=== PATIENT | female | born 1950 | race Caucasian/White ===

== ENCOUNTER 2023-08-01 08:46 | Outpatient (AMB) | payer MEDICARE, SELFPAY ==
--- NOTE | 2023-08-01 09:02 | HO.NEPHOV ---
HPI HPI Comments History of Present Illness Details 73-year-old woman with a history of nephrolithiasis he is here for annual follow-up. She has had about 6 stones in the past with multiple procedures. She is to follow with Dr. Cornelius and switched care since Dr. Cornelius has retired. Few weeks ago she was at a and blood pressure was as high as 160 mm Hg and she is concerned that she might have hypertension. At present she has not on any medications. 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 She was given hydrochlorothiazide and subsequently stopped because she developed itching At present she has no specific complaints. No headache nausea vomiting. No hematuria. No dysuria urgency. No edema no shortness of breath. All other systems were reviewed [facility] Social History (Updated 08/01/23 @ 09:06 by Melonie Charles) Alcohol intake: current Comment: Occ Patient Tobacco Use Status: Never used Tobacco Vital Signs 08/01/23 09:03 Height 5 ft 2 in Weight 132 lb BMI 24.1 BP 124/70 Blood Pressure Location Lt brachial Position Sitting Pulse 88 Pulse Source Pulse Oximeter Pulse Oximetry (%) 98 Oxygen Delivery Method Room Air Physical Exam Vital Signs: Last Vital Signs Pulse 88 08/01/23 09:03 BP 124/70 08/01/23 09:03 Pulse Ox 98 08/01/23 09:03 Oxygen Delivery Method Room Air 08/01/23 09:03 BMI result Body Mass Index 24.1 Const General: comfortable Nutritional Appearance: well nourished Orientation/consciousness: patient oriented x3 HEENT Head: No normal to inspection Mouth: moist mucous membranes Neck Neck: Yes supple and Yes no JVD Resp Auscultation: clear to auscultation bilaterally, no rales and rub present Cardio Jugular venous distension: no JVD Palpation: no palpable S3 and no palpable S4 Heart sounds: no rubs GI Palpation (GI): Soft to palpation and nontender Percussion: No Fluid wave present General: Yes no CVA tenderness Back/Spine/Pelvis Back: no CVA tenderness Skin General skin exam: no rashes or lesions noted Neuro General: patient oriented x3 Extrem General: Yes no pedal edema and No clubbing Assessment & Plan Assessment & Plan (1) Nephrolithiasis: Code(s): N20.0 - Calculus of kidney (2) Elevated blood pressure reading: Code(s): R03.0 - Elevated blood-pressure reading, without diagnosis of hypertension Plan 73-year-old woman with a history of multiple renal stones. At present she is asymptomatic. Last 24 hour urine collection was more than 3 years ago. I will repeat a 24 urine collection. The meantime encouraged her to stand low-sodium diet She needs to increase her fluid intake to maintain urine output of at least 2 L. History of elevated blood pressure. In the office today blood pressure was in the normal range. I have encouraged her to monitor her blood pressure at home few times a week. Home blood pressure is suboptimal I will consider 24 hour ABP and. Orders: Orders Creatinine, 24 Hr Group Today N20.0 - Calculus of kidney Calcium, 24 Hr Ur Today N20.0 - Calculus of kidney Oxalate, 24 Hr Today N20.0 - Calculus of kidney Uric Acid, 24Hr Urine Group Today N20.0 - Calculus of kidney Parathyroid Hormone Intact Today N20.0 - Calculus of kidney Sodium, 24Hr Urine Group Today N20.0 - Calculus of kidney Citric Acid 24hr Urine Today N20.0 - Calculus of kidney Vitamin D 25-OH (D2 and D3) Today N20.0 - Calculus of kidney Comprehensive Met. Panel Today N18.9 - Chronic kidney disease, unspecified, N20.0 - Calculus of kidney Coding Level of Care Code New Pt Level 4 (33002) Diagnoses Nephrolithiasis N20.0 Elevated blood pressure reading R03.0 Results Reviewed Results Reviewed: Previous labs reviewed Nephrology Results: No Data to Display
[2023-08-01 09:03] VITALS: BP 124/70; PULSE 88; O2SAT 98; BMI 24.1
== END 2023-08-01 09:26 | disposition home or self-care (01) ==
PROVIDERS: Visit Provider Internal Medicine Hypertension Specialist
DX: N20.0 Calculus of kidney (principal); R03.0 Elevated blood-pressure reading, without diagnosis of hypertension
CPT/HCPCS: 99204

== ENCOUNTER 2023-08-01 09:37 | Outpatient (REF) | payer MEDICARE, SELFPAY ==
[2023-08-01 17:16] LABS: Alanine Aminotransferase 9 U/L (0-31); Albumin Level 4.2 g/dL (3.5-5.0); Alkaline Phosphatase 89 U/L (39-117); Anion Gap 12 (12-20); Aspartate Amino Transferase 18 U/L (5-31); Bilirubin Total 0.6 mg/dL (0.0-1.0); Blood Urea Nitrogen 16 mg/dL (9-16); Calcium 9.2 mg/dL (8.4-10.2); Carbon Dioxide 29 mmol/L (22-29); Chloride 104 mmol/L (96-108); Estimated Glomerular Filt Rate > 60; Glucose Random 94 mg/dL (60-115); Potassium 3.8 mmol/L (3.3-5.1); Sodium 141 mmol/L (135-145); Total Protein 7.3 g/dL (6.5-8.0)
[2023-08-01 18:37] LABS: Parathyroid Hormone Intact 45.9 pg/mL (8.7-77.1)
[2023-08-04 14:09] LABS: Vitamin D 25-OH, D2 <4 ng/mL; Vitamin D 25-OH, D3 29 ng/mL; Vitamin D 25-OH, Total 29 ng/mL (30-100)
== END 2023-08-01 09:38 | disposition home or self-care (01) ==
LOC: HO.HKASLDS 09:37
PROVIDERS: Visit Provider Internal Medicine Hypertension Specialist
DX: N20.0 Calculus of kidney (principal); N18.9 Chronic kidney disease, unspecified
CPT/HCPCS: 36415; 80053; 82306; 83970; 99202

== ENCOUNTER 2023-08-08 17:36 | Outpatient (REF) | payer MEDICARE, SELFPAY ==
[2023-08-08 19:10] LABS: Creatinine, mg/dL 62.29
[2023-08-08 19:13] LABS: Creatinine, mg/dL 63.43; Uric Acid, mg/dL 29.7 mg/dL
[2023-08-08 21:34] LABS: Creatinine, 24Hr Urine 0.9 G/Day (1.0-2.0); Sodium 24 Hr Urine 92.4 mmol/Day (40-220); Total Volume 24 Hour Urine 1400 mL
[2023-08-08 21:35] LABS: Creatinine, 24Hr Urine 0.9 G/Day (1.0-2.0); Total Volume 24 Hour Urine 1400 mL; Uric Acid, 24 Hr Urine 415.8 mg/Day (250-750)
[2023-08-10 16:58] LABS: Calcium, 24 Hr Urine 256 mg/24 h; Calcium/Creatinine Ratio 277 mg/g creat (30-275); Creatinine 24Hr Urine 0.92 g/24 h (0.50-2.15)
[2023-08-14 06:44] LABS: 24hr Urine Total Volume 1400 mL; Creatinine, 24U 0.92 g/24 h (0.50-2.15); Oxalic Acid 24 Urine 16.3 mg/24 h (3.6-38.0)
[2023-08-15 09:52] LABS: Citric Acid, 24hr Urine 909 mg/24 h (100-1300); Citric Acid/Creat Ratio 24U 977 mg/g creat (180-1070)
== END 2023-08-08 17:37 | disposition home or self-care (01) ==
LOC: HO.LNP 17:36
PROVIDERS: Visit Provider Internal Medicine Hypertension Specialist
DX: N20.0 Calculus of kidney (principal)
CPT/HCPCS: 82340; 82507; 83945; 84300; 84560

== ENCOUNTER 2023-08-29 11:15 | Outpatient (AMB) | payer MEDICARE, SELFPAY ==
--- NOTE | 2023-08-29 11:20 | HO.NEPHOV_ITS ---
Vital Signs 08/29/23 11:24 Height 5 ft 2 in Weight 133 lb 2 oz BMI 24.3 BP 122/80 Blood Pressure Location Lt brachial Position Sitting Pulse 88 Pulse Source Pulse Oximeter Pulse Oximetry (%) 97 Oxygen Delivery Method Room Air Intake Visit Reasons: 4 Week F/U/ LVM Instrumentation Manager Required: No Accompanied by: Self / Same As Patient Allergies codeine Allergy (Mild, Verified 08/29/23 11:26) Nausea and Vomiting HPI Comments Details: 73-year-old woman with a history of nephrolithiasis he is here for annual follow-up. She has had about 6 stones in the past with multiple procedures. She is to follow with Dr. Cornelius and switched care since Dr. Cornelius has retired. Few weeks ago she was at a and blood pressure was as high as 160 mm Hg and she is concerned that she might have hypertension. At present she has not on any medications. 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 She was given hydrochlorothiazide and subsequently stopped because she developed itching At present she has no specific complaints. No headache nausea vomiting. No hematuria. No dysuria urgency. No edema no shortness of breath. All other systems were reviewed. [facility] Social History Alcohol intake: current Comment: [facility] Patient Tobacco Use Status: Never used Tobacco Physical Exam Vital Signs: Last Vital Signs Pulse 88 08/29/23 11:24 BP 122/80 08/29/23 11:24 Pulse Ox 97 08/29/23 11:24 Oxygen Delivery Method Room Air 08/29/23 11:24 BMI result Body Mass Index 24.3 Const General: comfortable Nutritional Appearance: well nourished Orientation/consciousness: patient oriented x3 HEENT Head: No normal to inspection Mouth: moist mucous membranes Neck Neck: Yes supple and Yes no JVD Resp Auscultation: clear to auscultation bilaterally, no rales and rub present Cardio Jugular venous distension: no JVD Palpation: no palpable S3 and no palpable S4 Heart sounds: no rubs GI Palpation (GI): Soft to palpation and nontender Percussion: No Fluid wave present General: Yes no CVA tenderness Back/Spine/Pelvis Back: no CVA tenderness Skin General skin exam: no rashes or lesions noted Neuro General: patient oriented x3 Extrem General: Yes no pedal edema and No clubbing Results Reviewed Nephrology Results: Sodium 141 mmol/L (135-145) 08/01/23 Potassium 3.8 mmol/L (3.3-5.1) 08/01/23 Chloride 104 mmol/L (96-108) 08/01/23 Carbon Dioxide 29 mmol/L (22-29) 08/01/23 BUN 16 mg/dL (9-16) 08/01/23 Creatinine 0.69 mg/dL (0.5-1.4) 08/01/23 Calcium 9.2 mg/dL (8.4-10.2) 08/01/23 PTH Intact 45.9 pg/mL (8.7-77.1) 08/01/23 Assessment & Plan Assessment & Plan (1) Nephrolithiasis: Code(s): N20.0 - Calculus of kidney Category: Medical (2) Elevated blood pressure reading: Code(s): R03.0 - Elevated blood-pressure reading, without diagnosis of hypertension Category: Medical Plan 73-year-old woman with a history of multiple renal stones. At present she is asymptomatic. 24 urine collection. showed volume of 1400 cc only abnormality was mildly elevated calcium excretion Stay on low calcium diet No HCTZ since she is allergic encouraged her to stay on low-sodium diet She needs to increase her fluid intake to maintain urine output of at least 2 L. History of elevated blood pressure. In the office today blood pressure was in the normal range. I have encouraged her to monitor her blood pressure at home few times a week. Home blood pressure is suboptimal I will consider 24 hour ABPM. Orders: Orders Basic Metabolic Panel 11 Months N20.0 - Calculus of kidney Coding Level of Care Code Est Pt Level 3 (20623) Diagnoses Nephrolithiasis N20.0 Elevated blood pressure reading R03.0
[2023-08-29 11:24] VITALS: BP 122/80; PULSE 88; O2SAT 97; BMI 24.3
== END 2023-08-29 11:54 | disposition home or self-care (01) ==
PROVIDERS: Visit Provider Internal Medicine Hypertension Specialist
DX: N20.0 Calculus of kidney (principal); R03.0 Elevated blood-pressure reading, without diagnosis of hypertension
CPT/HCPCS: 99213

== ENCOUNTER → 2023-08-29 11:15 | Outpatient (BNVA) | payer MEDICARE, SELFPAY | PROVIDERS: Visit Provider Internal Medicine Hypertension Specialist | DX: N20.0 Calculus of kidney (principal); R03.0 Elevated blood-pressure reading, without diagnosis of hypertension | CPT/HCPCS: 99212 ==

== ENCOUNTER 2024-08-19 09:29 | Outpatient (REF) | payer MEDICARE, SELFPAY ==
--- OUTSIDE RECORDS SUMMARY | 2024-08-19 10:26 | XMS_ITS | Encounter Summary ---
Author Organization [facility] Address [address] [place] [address] Phone Care Team Providers Care Manager Safe Name Role Phone Zenaida Cain NP Primary Care Provider Encounter Details Date Type Department Care Team (Late st Contact Info) Description 2022 Telephone [facility] [address] [place] [address] Paulina Cornelius MD Social History Tobacco Use Types Packs/Day Years Used Date Smoking Tobacco: Never Smokeless Tobacco: Never Alcohol Use Standard Drinks/Week Comments Yes 0 (1 standard drink = 0.6 oz pure alcohol) Alcoholic Drinks/day: Occasional social drink Comments Unknown Sex and Gender Information Value Date Recorded Sex Assigned at Not on file Legal Sex Female 4:46 PM EST Gender Identity Not on file Sexual Orientation Not on file COVID-19 Exposure Response Date Recorded In the last 10 days, have yo u been in contact with someone who was confirmed or suspected to have Coronavirus/COVID-19? No / Unsure 01/10/2022 6:15 PM EDT documented as of this encounter Miscellaneous Notes * Telephone Encounter - Latonya Rocha - 2022 2:39 PM EDT Pt called, she would like to review her labs from 01/23/22 with you. Please call her back at [phone] Thank you documented in this encounter Plan of Treatment Not on file documented as of this encounter Visit Diagnoses Not on filedocumented in this encounter Care Teams Manager Safe Relationship Specialty Start Date End Date Zenaida Cain NP [address] PCP - General 05/03/20 documented as of this encounter
--- OUTSIDE RECORDS SUMMARY | 2024-08-19 10:26 | XMS_ITS | Clinical Summary ---
Author Organization [facility] Address [address] [place] [address] Care Team Providers Care Water Resource Project Manager Name Role Phone Zenaida Cain NP Primary Care Provider [phone] Allergies Active Allergy Reactions Criticality Noted Date Comments Codeine 08/20/2017 Medications Medication Sig Dispensed Refills Start Date End Date Status citric acid-potassium citrate (POLYCITRA) 1100-334 MG/5ML solution Take by mouth 3 (three) times a day with meals. 0 Active magnesium citrate 1.745 GM/30ML SOLN oral solution Take 296 mL by mouth once. 0 Active Active Problems No known active problems Family History Medical History Relation Name Comments Multiple sclerosis Maternal Aunt Uterine cancer Mother Relation Name Status Comments Maternal Aunt Mother Social History Tobacco Use Types Packs/Day Years Used Date Smoking Tobacco: Never Smokeless Tobacco: Never Alcohol Use Standard Drinks/Week Comments No 0 (1 standard drink = 0.6 oz pur e alcohol) Sex and Gender Information Value Date Recorded Sex Assigned at Not on file Gender Identity Not on file Sexual Orientation Not on file Job Start Date Occupation Industry Not on file Not on file Not on file Last Filed Vital Signs Vital Sign Reading Time Taken Comments Blood Pressure 118/70 08/20/2017 9:15 AM EDT Pulse - - Temperature - - Respiratory Rate - - Oxygen Saturation - - Inhaled Oxygen Concentration - - Weight 64.4 kg (142 lb) 08/20/2017 9:15 AM EDT Height 157.5 cm (5' 2 ) 08/20/2017 9:15 AM EDT Body Mass Index 25.97 08/20/2017 9:15 AM EDT Plan of Treatment Health Maintenance Due Date Last Done Comments Hepatitis C Screening 1950 COVID-19 Vaccine (#1) 1950 Depression Screening 1960 Preventative Health Evaluation 02/05/1966 DTap / Tdap / Td (1 - Tdap) 02/05/1967 Shingrix-Zoster Vaccine (1 of 2) 02/05/1998 Fall Risk Assessment 02/05/2013 Osteoporosis Screening (DEXA Scan) 02/05/2013 Pneumococcal Vaccine (1 of 1 - PCV) 02/05/2013 RSV Adult > 60+ Yrs or Pregn ant (1 - 1-dose 75+ series) 02/05/2023 Influenza Vaccine (#1) 2023 Hepatitis B Vaccines Aged Out No long er eligible based on patient's age to complete this topic RSV Ped < 20 months Aged Out No longe r eligible based on patient's age to complete this topic Care Teams Water Resource Project Manager Relationship Specialty Start Date End Date Zenaida Cain NP [address] [place] [address] PCP - General Gerontology 08/15/17
--- OUTSIDE RECORDS SUMMARY | 2024-08-19 10:26 | XMS_ITS | Clinical Summary ---
Author Organization [facility] Address [address] [place] [address] Phone Care Team Providers Care Wire Worker Name Role Phone Zenaida Cain NP Primary Care Provider [phone] Allergies Active Allergy Reactions Criticality Noted Date Comments Codeine 05/22/2024 Medications famotidine (PEPCID) 20 mg tablet Take 1 tablet (20 mg total) by mouth 2 (two) times a day. for 30 days Active Encounters Date Type Department Care Team Description 07/25/2024 Telephone Gastroenterology - [address] [facility] [address] [place] [phone] Becky Ignacio MA Results 07/23/2024 10:47 AM EDT Anesthesia Event [facility] Endoscopy [address] [place] [phone] Lake Shelton MD 07/23/2024 9:23 AM EDT - 07/23/2024 11:59 PM EDT Hospital Encounter [facility] Endoscopy [address] [place] [id number] Jose Leon MD Korobkov, Vitaliy, DO GERD (gastroesophageal reflux disease) Discharge Disposition: Home or Self Care 07/02/2024 11:30 AM EDT Ancillary Procedure [facility] - [address] [place] [phone] Syncope and collapse 05/22/2024 11:00 AM EST Office Visit Gastroenterology - [address] [place] [address] Joy Espinoza NP Gastroesophageal reflux disease, unspecified whether esophagitis present (Primary Dx) from Last 3 Months Surgical History Surgery Date Site/Laterality Comments CHOLECYSTECTOMY KIDNEY STONE SURGERY X6 DR TOE(S) RIGHT FOOT Right BUNION Medical History Medical History Date Comments Kidney stones, calcium oxalate Hypertension Syncope and collapse GERD (gastroesophageal reflux disease) Basal cell adenocarcinoma Social History Tobacco Use Types Packs/Day Years Used Date Smoking Tobacco: Never Smokeless Tobacco: Never Alcohol Use Standard Drinks/Week Comments Not Currently 0 (1 standard drink = 0.6 oz pur e alcohol) Interpersonal Safety Answer Date Record ed Physical Abuse 07/23/2024 Verbal Abuse 07/23/2024 Comments No Sex and Gender Information Value Date Recorded Sex Assigned at Female 07/23/2024 9:19 AM EDT Legal Sex Female 9:28 AM EST Gender Identity Female 04/28/2024 2:05 PM EST Sexual Orientation Straight 04/28/2024 2: 05 PM EST Obstetrics History Last Filed Vital Signs Vital Sign Reading Time Taken Comments Blood Pressure 131/76 07/23/2024 11:21 AM EDT Pulse 73 07/23/2024 11:21 AM EDT Temperature 36 ??C (96.8 ??F) 07/23/2024 11:01 AM EDT Respiratory Rate 14 07/23/2024 11:21 AM EDT Oxygen Saturation 100% 07/23/2024 11:21 AM EDT Inhaled Oxygen Concentration - - Weight 60.3 kg (133 lb) 07/23/2024 9:58 AM EDT Height 158.5 cm (5' 2.4 ) 07/23/2024 9:58 AM EDT Body Mass Index 24.02 07/23/2024 9:58 AM EDT Plan of Treatment Health Maintenance Due Date Last Done Comments Zoster Vaccines (1 of 2) 02/05/1998 Cholesterol Screening (Lipid Panel) 04/01/2022 Depression Screening 04/01/2022 Hepatitis C Screening 04/01/2022 Medicare Annual Wellness Visit 04/01/2022 Osteoporosis Screening (Bone Density Screening) 04/01/2022 Social Influencers of Health Screening 04/01/2022 RSV Immunization Adult Patients (1 - 1-dose 75+ series) 02/05/2023 COVID-19 Vaccine ( season) 2023 03/28/2023, 02/28/2022, 01/23/2021, Additional history exists Hypertension/CHF/CAD Annual BMP Blood Test 04/21/2024 Falls Risk Assessment 07/23/2025 07/23/2024 DTaP,Tdap,and Td Vaccines (3 - Td or Tdap) 04/05/2028 04/05/2018, 09/25/1996 Pneumococcal Vaccine: 50+ Years Completed 03/09/2017, 03/07/2017 Influenza Vaccine Completed 02/13/2024, , 02/01/2022, Additional history exists HIB Vaccines Aged Out No longer eligi ble based on patient's age to complete this topic HPV Vaccines Aged Out No longer eligi ble based on patient's age to complete this topic Hepatitis A Vaccines Aged Out No long er eligible based on patient's age to complete this topic Hepatitis B Vaccines Aged Out No long er eligible based on patient's age to complete this topic IPV Vaccines Aged Out No longer eligi ble based on patient's age to complete this topic MMR Vaccines Aged Out No longer eligi ble based on patient's age to complete this topic Meningococcal ACWY Vaccine Aged Out N o longer eligible based on patient's age to complete this topic Meningococcal B Vaccine Aged Out No l onger eligible based on patient's age to complete this topic RSV Immunization Patients Under 20 months Aged Out No longer eligible based on patient's age to complete this topic Varicella Vaccines Aged Out No longer eligible based on patient's age to complete this topic Procedures Procedure Name Priority Date/Time Associated Diagnosis Comments EGD Routine 07/23/2024 11:00 AM EDT GERD (gastroesophageal reflux disease) TISSUE EXAM Routine 07/23/2024 10:55 AM EDT GERD (gastroesophageal reflux disease) TRANSTHORACIC ECHOCARDIOGRAM (TTE) COMPLETE Routine 07/02/2024 12:05 PM EDT Syncope and collapse from Last 3 Months Results * EGD Anesthesia - MAC; [facility] ENDOSCOPY (07/23/2024 11:00 AM EDT) Anatomical Region Laterality Modality Endoscopy 07/23/2024 10:5 3 AM EDT Impressions 07/23/2024 11:01 AM EDT - 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 Biopsied. ? - Small hiatal hernia. ? - Normal examined duodenum. Recommendation: ?- Await pathology results. ? - Continue present medications. ? - Repeat upper endoscopy for surveillance based on ? pathology results. Narrative 07/23/2024 11:01 AM EDT [facility] GI Patient Name: Tiffany Bird Procedure Date: 07/23/2024 10:53 AM Date of : 1950 Age: 74 Room: ROOM 15 Gender: Female Note Status: Finalized Attending MD: Jose Leon MD, Procedure Date No Time: 07/23/2024 Procedure: ? Upper GI endoscopy Indications: ? Heartburn, Gastro-esophageal reflux disease Providers: ? Jose Leon MD Referring MD: ?Jose Leon MD Medicines: ? Propofol per Anesthesia Complications: ? No immediate complications. Estimated Blood Loss: ? Estimated blood loss: none. Procedure: ? Pre-Anesthesia Assessment: ? - ASA Grade Assessment: II - A patient with mild ? systemic disease. ? After obtaining informed consent, the endoscope was ? passed under direct vision. Throughout the procedure, ? the patient's blood pressure, pulse, and oxygen ? saturations were monitored continuously.The Endoscope ? was introduced through the mouth, and advanced to the ? second part of duodenum. The upper GI endoscopy was ? accomplished without difficulty. The patient tolerated ? the procedure well. Findings: ?There were esophageal mucosal changes suggestive of ? short-segment Maddox's esophagus present in the lower ? third of the esophagus. The maximum longitudinal ? extent of these mucosal changes was 1 cm in length. ? Biopsies were taken with a cold forceps for histology. ? A small hiatal hernia was present. ? The exam of the stomach was otherwise normal. ? The examined duodenum was normal. Procedure Code(s): ? --- Professional --- ? 73621, Esophagogastroduodenoscopy, flexible, ? transoral; with biopsy, single or multiple Diagnosis Code(s): ? --- Professional --- ? K22.89, Other specified disease of esophagus ? K44.9, Diaphragmatic hernia without obstruction or ? gangrene ? R12, Heartburn ? K21.9, Gastro-esophageal reflux disease without ? esophagitis CPT copyright 2020 [employer]. All rights reserved. The codes documented in this report are preliminary and upon keyboarding teacher review may be revised to meet current compliance requirements. Jose Leon MD 07/23/2024 11:01:22 AM This report has been signed electronically.Jose Leon MD Number of Addenda: 0 Note Initiated On: 07/23/2024 10:53 AM Scope In: Scope Out: ? Endoscopy Department at [facility] - [address] [place] [address], ? [place] [address] Procedure Note Jose Leon MD - 07/23/2024 [facility] GI Patient Name: Tiffany Bird Procedure Date: 07/23/2024 10:53 AM Date of : 1950 Age: 74 Room: ROOM 15 Gender: Female Note Status: Finalized Attending MD: Jose Leon MD, Procedure Date No Time: 07/23/2024 Procedure: Upper GI endoscopy Indications: Heartburn, Gastro-esophageal reflux disease Providers: Jose Leon MD Referring MD: Jose Leon MD Medicines: Propofol per Anesthesia Complications: No immediate complications. Estimated Blood Loss: Estimated blood loss: none. Procedure: Pre-Anesthesia Assessment: - ASA Grade Assessment: II - A patient with mild systemic disease. After obtaining informed consent, the endoscope was passed under direct vision. Throughout theprocedure, the patient's blood pressure, pulse, and oxygen saturations were monitored continuously.TheEndoscope was introduced through the mouth, and advanced tothe second part of duodenum. The upper GI endoscopy was accomplished without difficulty. The patienttolerated the procedure well. Findings: There were esophageal mucosal changes suggestive of short-segment Maddox's esophagus present in thelower third of the esophagus. The maximum longitudinal extent of these mucosal changes was 1 cm in length. Biopsies were taken with a cold forceps forhistology. A small hiatal hernia was present. The exam of the stomach was otherwise normal. The examined duodenum was normal. Procedure Code(s): --- Professional --- 65993, Esophagogastroduodenoscopy, flexible, transoral; with biopsy, single or multiple Diagnosis Code(s): --- Professional --- K22.89, Other specified disease of esophagus K44.9, Diaphragmatic hernia without obstruction or gangrene R12, Heartburn K21.9, Gastro-esophageal reflux disease without esophagitis CPT copyright 2020 [employer]. All rights reserved. The codes documented in this report are preliminary and upon keyboarding teacher reviewmay be revised to meet current compliance requirements. 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 Biopsied. - Small hiatal hernia. - Normal examined duodenum. Recommendation: - Await pathology results. - Continue present medications. - Repeat upper endoscopy for surveillance based on pathology results. Jose Leon MD GI~PROCEDURE ORDERABLES Fin al Result * Tissue exam (07/23/2024 10:55 AM EDT) Final Diagnosis A. Esophagus, biopsies: - Maddox's mucosa. - Negative for dysplasia. 07/24/2024 12:38 PM EDT [facility] Gross Description A. Esophagus, biopsies: Labeled esophagus biopsies . Received in formalin, are three irregular soft to friable, white-pink to red tissue fragments, approximately ranging from 0.4 cm to 0.5 cm in greatest diameters, which are wrapped in paper and submitted in toto in one cassette, three pieces, multiple levels. dvb/DG 07/24/2024 12:38 PM EDT [facility] Disclaimer Unless otherwise specified, all tissue is 10% NB formalin fixed and paraffin embedded. 07/24/2024 12:38 PM EDT [facility] Tissue Esophageal structure / Unknown 07/23/2024 10:55 AM EDT 07/23/2024 11:58 AM EDT us Jose Leon MD LAB PATHOLOGY ORDERABLES Fi nal Result [facility] [address] [place] [address], * (ABNORMAL) TRANSTHORACIC ECHOCARDIOGRAM (TTE) COMPLETE (07/02/2024 12:05 PM EDT) Left Atrium Minor Talmage 5.2 cm CV PACS Left Atrium Major Talmage 4.5 cm CV PACS LA Area Sys (A2C) 16 cm2 CV PACS LA Area Sys (A4C) 13 cm2 CV PACS LA Volume (BP) 40 mL CV PACS LA Size 3.1 cm CV PACS RA Area 9.3 cm2 CV PACS RA 2D Volume 18 mL CV PACS AV Mean Gradient 3 mmHg CV PACS AV Mean Gradient 3 mmHg CV PACS Ao VTI 28.2 cm CV PACS AV Peak Joao 1.4 m/s CV PACS AV Peak Gradient 7 mmHg CV PACS AV Area Continuity Equation 2.1 cm2 CV PACS AV Area Peak Velocity 2.1 cm2 CV PACS Aortic Arch 2.5 cm CV PACS Ascending Aorta 3.4 cm CV PACS Aortic Sinus Valsalva 3.4 cm CV PACS IVC Proximal 1.9 cm CV PACS IVSD 1.2(A) 0.6 - 0.9 cm CV PACS LVIDD 4.2 3.8 - 5.2 cm CV PACS LVIDS 2.8 2.2 - 3.5 cm CV PACS LVOT Diameter 1.8 cm CV PACS LVOT Mean Joao 0.7 m/s CV PACS LVOT Mean Grad 2 mmHg CV PACS LVOT Mean Grad 2 mmHg CV PACS LVOT Peak VTI 22.9 cm CV PACS LVOT Peak Joao 1.1 m/s CV PACS LVOT Peak Gradient 5 mmHg CV PACS LVPWD 1.2(A) 0.6 - 0.9 cm CV PACS MV E' Tissue Velocity Lateral 9 cm/s CV PACS MV E' Tissue Velocity Septal 8 cm/s CV PACS LVOT Area 2.5 cm2 CV PACS LVOT Stroke Volume 58 mL CV PACS MR PISA Nyquist Joao 53 cm/s CV PACS PISA MR Radius 0.50 cm CV PACS MV Mean Gradient 2 mmHg CV PACS MV Mean Gradient 2 mmHg CV PACS MV Mean Gradient 2 mmHg CV PACS MV Mean Gradient 2 mmHg CV PACS MR VTI 150.0 cm CV PACS MV VTI 28.4 cm CV PACS MV VTI 28.4 cm CV PACS MR PISA Max Velocity 5.4 m/s CV PACS MR Peak Gradient 118 mmHg CV PACS Mitral Valve Max Velocity 1.2 m/s CV PACS MV Peak Gradient 5 mmHg CV PACS MV Deceleration [place] 4.5 m/s2 CV PACS E Wave Deceleration Time 212 119 - 242 ms CV PACS MV PHT 62 ms CV PACS MV Peak A Joao 0.99 m/s CV PACS MV Peak E Joao 0.96 m/s CV PACS MV Peak E Joao 0.96 m/s CV PACS PISA MR EROA 0.15 cm2 CV PACS MV Area PHT 3.6 cm2 CV PACS PISA Regurgitant Volume 23 mL CV PACS PV Acceleration Time 176 ms CV PACS PV Mean Gradient 2 mmHg CV PACS PV VTI 20.5 cm CV PACS PV Peak Velocity 0.9 m/s CV PACS PV Peak Gradient 3 mmHg CV PACS RV Diastolic Basal Dimension 3.0 2.5 - 4.1 cm CV PACS RV S' 11 cm/s CV PACS TAPSE 19 mm CV PACS Relative Wall Thickness ratio 0.57 CV PACS LVOT:AV VTI Index 0.81 CV PACS FS 33 % CV PACS LV Mass 2D 178 g CV PACS LVOT flow 178 mL/s CV PACS AV Velocity Ratio 0.79 CV PACS BSA 1.62 m2 CV PACS LA Volume Index (BP) 25 mL/m2 CV PACS LVIDD Index 2.61 cm/m2 CV PACS LVIDS Index 1.74 cm/m2 CV PACS LV Mass Index 2D 111(A) 44 - 88 g/m2 CV PACS LVOT Stroke Index 36 mL/m2 CV PACS LA Dimension Index 2D 1.9 cm/m2 CV PACS RA 2D Volume Index 11(A) 15 - 27 mL/m2 CV PACS AVERY Index (VTI) 1.28 cm2/m2 CV PACS AVERY Index (Pk Joao) 1.30 cm2/m2 CV PACS Ascending Aorta Index 2.11 cm/m2 CV PACS Est. RA Pressure 3 mmHg CV PACS Anatomical Region Laterality Modality Ultrasound Narrative 07/06/2024 1:25 PM EDT ?Left ventricle cavity size is normal. Left ventricular systolic function is in the normal range with an ejection fraction of 60-65%. ?No regional LV wall motion abnormalities noted. ?Left ventricle mild concentric hypertrophy. ?Right ventricle cavity is normal. ?Aortic valve leaflets are mildly thickened. ?Mitral valve demonstrates moderate regurgitation with a centrally directed jet. ?Mild calcification of the mitral valve posterior leaflet subvalvular apparatus at the base. Left Ventricle Left ventricle cavity size is normal. There is mild concentric hypertrophy. Systolic function is normal with an ejection fraction of 60-65%. There are no regional LV wall motion abnormalities. Right Ventricle Right ventricle cavity appears normal. Left Atrium Left atrium cavity size is normal. Right Atrium Right atrium cavity is normal. IVC/SVC Inferior vena cava structure is normal. RA pressures is estimated to be 3 mmHg (IVC diameter <21 mm and decreases >50% during inspiration). Mitral Valve The leaflets are mildly thickened. There is mild calcification of the posterior leaflet subvalvular apparatus at the base. There is moderate regurgitation with a centrally directed jet. There is no evidence of mitral valve stenosis. Tricuspid Valve Tricuspid valve structure is normal. There is no significant regurgitation. Cannot assess RVSP. Aortic Valve The aortic valve is trileaflet. The leaflets are mildly thickened. There is no regurgitation or stenosis. Pulmonic Valve No significant pulmonic valve regurgitation. Ascending Aorta The aorta appears normal in size. Pericardium Pericardium appears normal. There is no pericardial effusion. Study Details Overall the study quality was adequate. 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
--- OUTSIDE RECORDS SUMMARY | 2024-08-19 10:26 | XMS_ITS | Clinical Summary ---
Author Organization [facility] Address [address] [facility] [address] [place] [address] Phone Care Team Providers Care Applications Systems Engineer Name Role Phone Zenaida Cain NP Primary Care Provider Allergies Active Allergy Reactions Criticality Noted Date Comments Codeine Nausea Only,Nausea And Vomiting 11/2016 Medications No known medications Active Problems Problem Noted Date Diagnosed Date Gross hematuria 01/17/2022 Nephrolithiasis 07/13/2021 Secondary hypertension 07/12/2021 Labile hypertension due to being in a clinical e nvironment 07/12/2021 Hydronephrosis 07/12/2021 Family History Medical History Relation Comments Cancer Mother uterine Relation Status Comments Father Mother Social History Tobacco Use Types Packs/Day [...] on file Sexual Orientation Not on file Last Filed Vital Signs Vital Sign Reading Time Taken Comments Blood Pressure 130/78 07/31/2022 3:13 PM EDT Pulse 84 07/31/2022 3:13 PM EDT Temperature - - Respiratory Rate - - Oxygen Saturation 98% 01/17/2022 1:48 PM EDT Inhaled Oxygen Concentration - - Weight 63 kg (138 lb 14.4 oz) 07/31/2022 3:13 PM EDT Height 157.5 cm (5' 2 ) 07/31/2022 3:13 PM EDT Body Mass Index 25.41 07/31/2022 3:13 PM EDT Plan of Treatment Health Maintenance Due Date Last Done Comments Influenza Vaccine (Season Ended) 2024 Pneumococcal Vaccine: 50+ Years Completed 03/09/2017, 03/07/2017 Pneumococcal Vaccine: Peds (0 to 5 Years) and At-Risk Patients (6 to 49 Years) Discontinued 03/09/2017, 03/07/2017 Hepatitis B Vaccine Aged Out No longe r eligible based on patient's age to complete this topic Insurance Care Teams Applications Systems Engineer Relationship Specialty Start Date End Date Zenaida Cain NP [address] PCP - General 05/03/20
[2024-08-19 18:03] LABS: Anion Gap 15 (12-20); Blood Urea Nitrogen 16 mg/dL (9-16); Calcium 9.8 mg/dL (8.4-10.2); Carbon Dioxide 27 mmol/L (22-29); Chloride 104 mmol/L (96-108); Estimated Glomerular Filt Rate > 60; Glucose Random 81 mg/dL (60-115); Potassium 4.3 mmol/L (3.3-5.1); Sodium 142 mmol/L (135-145)
== END 2024-08-19 09:30 | disposition home or self-care (01) ==
LOC: HO.HKASLDS 09:29
PROVIDERS: Visit Provider Internal Medicine Hypertension Specialist
DX: N20.0 Calculus of kidney (principal)
CPT/HCPCS: 36415; 80048

== ENCOUNTER 2024-08-27 11:10 | Outpatient (AMB) | payer MEDICARE, SELFPAY ==
[2024-08-27 11:21] VITALS: BP 114/68; PULSE 84; O2SAT 96; BMI 24.3
--- NOTE | 2024-08-27 11:21 | HO.NEPHOV ---
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 She has had about 6 stones in the past with multiple procedures. She is to follow with Dr. Cornelius and switched care since Dr. Cornelius has retired. Few weeks ago she was at a and blood pressure was as high as 160 mm Hg and she is concerned that she might have hypertension. At present she has not on any medications. 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 She was given hydrochlorothiazide and subsequently stopped because she developed itching At present she has no specific complaints. No headache nausea vomiting. No hematuria. No dysuria urgency. No edema no shortness of breath. All other systems were reviewed. [facility] Surgical History (Updated 08/27/24 @ 11:24 by CONOR Malloy) S/P Mohs surgery for basal cell carcinoma (~07/2024) Social History Alcohol intake: current Comment: [facility] Patient Tobacco Use Status: Never used Tobacco Physical Exam Vital Signs: Last Vital Signs Pulse 84 08/27/24 11:21 BP 114/68 08/27/24 11:21 Pulse Ox 96 08/27/24 11:21 Oxygen Delivery Method Room Air 08/27/24 11:21 BMI result Body Mass Index 24.3 Const General: comfortable Nutritional Appearance: well nourished Orientation/consciousness: patient oriented x3 HEENT Head: No normal to inspection Mouth: moist mucous membranes Eyes General: appearance normal, both eyes and all related structures Visual Keyes: normal visual keyes by confrontation Neck Neck: Yes supple and Yes no JVD Resp Effort & Inspection: normal respiratory effort and respiratory effort not decreased Auscultation: clear to auscultation bilaterally and no rales Cardio Jugular venous distension: no JVD Palpation: no palpable S3 and no palpable S4 Heart sounds: Murmur heart sound present (holosystolic) and no rubs GI Inspection: Yes normal to inspection Palpation (GI): Soft to palpation and nontender Percussion: No Fluid wave present Auscultation: normal bowel sounds General: Yes no CVA tenderness Back/Spine/Pelvis Back: no CVA tenderness Skin General skin exam: no rashes or lesions noted Neuro General: patient oriented x3 Extrem General: Yes no pedal edema and No clubbing Results Reviewed Nephrology Results: Sodium 142 mmol/L (135-145) 08/19/24 Potassium 4.3 mmol/L (3.3-5.1) 08/19/24 Chloride 104 mmol/L (96-108) 08/19/24 Carbon Dioxide 27 mmol/L (22-29) 08/19/24 BUN 16 mg/dL (9-16) 08/19/24 Creatinine 0.72 mg/dL (0.5-1.4) 08/19/24 Calcium 9.8 mg/dL (8.4-10.2) 08/19/24 PTH Intact 45.9 pg/mL (8.7-77.1) 08/01/23 Assessment & Plan Assessment & Plan (1) Nephrolithiasis: Code(s): N20.0 - Calculus of kidney Category: Medical (2) Elevated blood pressure reading: Code(s): R03.0 - Elevated blood-pressure reading, without diagnosis of hypertension Category: Medical Plan Multiple renal stones. At present she is asymptomatic. 24 urine collection. showed volume of 1400 cc only abnormality was mildly elevated calcium excretion Stay on low calcium diet No HCTZ since she is allergic encouraged her to stay on low-sodium diet Adequate fluid intake to maintain urine output of at least 2 L. History of elevated blood pressure. In the office today blood pressure was in the normal range. No changes were made today Orders: Orders Basic Metabolic Panel 1 Year N20.0 - Calculus of kidney Coding Level of Care Code Est Pt Level 4 (11039) Diagnoses Nephrolithiasis N20.0 Elevated blood pressure reading R03.0
--- OUTSIDE RECORDS SUMMARY | 2024-08-27 12:36 | XMS_ITS | Clinical Summary ---
Author Organization [facility] Address [facility] [address] Phone Care Team Providers Care Machine Carton Marker Name Role Phone Zenaida Cain NP Primary Care Provider Allergies Active Allergy Reactions Criticality Noted Date Comments Codeine 05/22/2024 Medications famotidine (PEPCID) 20 mg tablet Take 1 tablet (20 mg total) by mouth 2 (two) times a day. for 30 days Active Encounters Date Type Department Care Team Description 07/25/2024 Telephone Gastroenterology - [address] [facility] [address] [place] [phone] Becky Ignacio MA Results 07/23/2024 10:47 AM EDT Anesthesia Event [facility] Endoscopy [address] [place] [phone] Lake Shelton MD 07/23/2024 9:23 AM EDT - 07/23/2024 11:59 PM EDT Hospital Encounter [facility] Endoscopy [address] [place] [phone] Jose Leon MD Korobkov, Vitaliy, DO GERD (gastroesophageal reflux disease) Discharge Disposition: Home or Self Care 07/02/2024 11:30 AM EDT Ancillary Procedure [facility] [address] [place] [phone] Syncope and collapse from Last 3 Months Surgical History Surgery Date Site/Laterality Comments CHOLECYSTECTOMY KIDNEY STONE SURGERY X6 TOE(S) RIGHT FOOT Right BUNION Medical History [...] Months Results * EGD Anesthesia - MAC; [facility] ENDOSCOPY (07/23/2024 11:00 AM EDT) Anatomical Region [...] pathology results. Narrative 07/23/2024 11:[address] [facility] GI Patient Name: Tiffany Bird [...] Procedure Code(s): ? --- Professional --- ? 07877, Esophagogastroduodenoscopy, flexible, ? transoral; with biopsy, single or multiple Diagnosis Code(s): ? --- Professional --- ? K22.89, Other specified disease of esophagus ? K44.9, Diaphragmatic hernia without obstruction or ? gangrene ? R12, Heartburn ? K21.9, Gastro-esophageal reflux disease without ? esophagitis CPT copyright 2020 [employer] [employer]. All rights reserved. The codes documented in this report are preliminary and upon inventory taker review may be revised to meet current compliance requirements. Jose Leon MD 07/23/2024 11:01:22 AM This report has been signed electronically.Jose Leon MD Number of Addenda: 0 Note Initiated On: 07/23/2024 10:53 AM Scope In: Scope Out: ? Endoscopy Department at [facility] - [address] [place] [address], ? [id number] Procedure Note Jose Leon MD - 07/23/[address] [facility] GI Patient Name: Tiffany Bird [...] was normal. Procedure Code(s): --- Professional --- 59081, Esophagogastroduodenoscopy, flexible, transoral; with biopsy, single or multiple Diagnosis Code(s): --- Professional --- K22.89, Other specified disease of esophagus K44.9, Diaphragmatic hernia without obstruction or gangrene R12, Heartburn K21.9, Gastro-esophageal reflux disease without esophagitis CPT copyright 2020 [employer] [place] [employer]. All rights reserved. The codes documented in this report are preliminary and upon inventory taker reviewmay be revised to meet current compliance requirements. Jose Leon MD 07/23/2024 11:01:22 AM This report has been signed electronically.Jose Leon MD Number of Addenda: 0 Note Initiated On: 07/23/2024 10:53 AM Scope In: Scope Out: Endoscopy Department at 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 Biopsied. - Small hiatal hernia. - Normal examined duodenum. Recommendation: - Await pathology results. - Continue present medications. - Repeat upper endoscopy for surveillance based on pathology results. us Jose Leon MD GI~PROCEDURE ORDERABLES Fin al Result * Tissue exam (07/23/2024 10:55 AM EDT) Final Diagnosis A. Esophagus, biopsies: - Maddox's mucosa. - Negative for dysplasia. 07/24/2024 12:38 PM EDT [facility] Gross Description A. Esophagus, biopsies: Labeled esophagus biopsies . Received in formalin, are three irregular soft to friable, white-pink to red tissue fragments, approximately ranging from 0.4 cm to 0.5 cm in greatest diameters, which are wrapped in paper and submitted in toto in one cassette, three pieces, multiple levels. dvb/DG 07/24/2024 12:38 PM EDT [facility] Disclaimer Unless otherwise specified, all tissue is 10% NB formalin fixed and paraffin embedded. 07/24/2024 12:38 PM EDT [facility] Tissue Esophageal structure / Unknown 07/23/2024 10:55 AM EDT 07/23/2024 11:58 AM EDT us Jose Leon MD LAB PATHOLOGY ORDERABLES Fi nal Result [facility] [address] [place] [address], [place] [phone] * (ABNORMAL) TRANSTHORACIC ECHOCARDIOGRAM (TTE) COMPLETE (07/02/2024 12:05 PM EDT) Left Atrium Minor Aiken 5.2 cm CV PACS Left Atrium Major Aiken 4.5 cm CV PACS LA Area Sys [...] Gradient 5 mmHg CV PACS MV Deceleration Delta 4.5 m/s2 CV PACS E Wave Deceleration [...] Last 3 Months Insurance [employer] MEDICARE Advance Directives Documents on File Type Date Recorded Patient Supervisor Knitting Expl anation Health Care Decision (hx) 08/26/2015 [...] (hx) 08/26/2015 AD MCGREGOR DIRECTIVE Care Teams Machine Carton Marker Relationship Specialty Start Date End Date Zenaida Cain NP [address] [place] [address] PCP - General 01/05/13
--- OUTSIDE RECORDS SUMMARY | 2024-08-27 12:36 | XMS_ITS | Encounter Summary ---
Author Organization [facility] Address [address] [place] [address] Phone Care Team Providers Care Driving Teacher Name Role Phone Zenaida Cain NP Primary Care Provider [phone] Encounter Details Date Type Department Care Team (Late st Contact Info) Description 2022 Telephone [facility] [address] [place] [address] Paulina Cornelius MD Social History [...] with you. Please call her back at [phone] Thank you documented in this encounter Plan of Treatment Not on file documented as of this encounter Visit Diagnoses Not on filedocumented in this encounter Care Teams Driving Teacher Relationship Specialty Start Date End Date Zenaida Cain NP [address] PCP - General 05/03/20 documented as of this encounter
--- OUTSIDE RECORDS SUMMARY | 2024-08-27 12:36 | XMS_ITS | Continuity of Care Document ---
Author Organization [facility] Address [address] [place] [address]- Care Team Providers Care Mosaic Worker Name Role Phone Elvin BROOKS, Arcelia Primary Care Physician Encounter [facility] Date(s): 08/18/24 - 08/25/24 [facility] [address] [place] [address]- Encounter Diagnosis Mitral valve disorder(Discharge Diagnosis) - 08/18/24 GERD (gastroesophageal reflux disease)(Discharge Diagnosis) - 08/18/24 Carotid artery stenosis(Discharge Diagnosis) - 08/18/24 Anxiety(Discharge Diagnosis) - 08/18/24 Insomnia(Discharge Diagnosis) - 08/18/24 Herpes Simplex(Discharge Diagnosis) - 08/18/24 History of basal cell cancer(Discharge Diagnosis) - 08/18/24 Elevated Blood Pressure Reading without Diagnosis of Hypertension(Discharge Diagnosis) - 08/18/24 Attending Physician: Arcelia Oconnor MD Encounter Type: Office Visit Allergies, Adverse Reactions, Alerts Substance Criticality Severity Reaction Reaction Severity Status Tylox vomiting Active Immunizations Given and Recorded Vaccine Date Status Refusal Reason influenza virus vaccine, inactivated 02/13/24 Tigre rded influenza virus vaccine, inactivated 03/06/23 Tigre rded influenza virus vaccine, inactivated 02/01/22 Tigre rded influenza virus vaccine, inactivated 03/02/21 Tigre rded influenza virus vaccine, inactivated 02/05/20 Tigre rded influenza virus vaccine, inactivated 1 02/16/18 Gi charles influenza virus vaccine, inactivated 2 03/09/17 Gi charles influenza virus vaccine, inactivated 01/21/15 Give n influenza virus vaccine, inactivated 02/13/14 Tigre rded SARS-CoV-2(COVID-19)mRNA-LNP vac([id number]) 03/28/23 Recorded [id number] 12y+ bivalent booster vax 02/28/22 Recorded SARS-CoV-2 (COVID-19) mRNA BNT-162b2 vac 01/23/21 Recorded SARS-CoV-2 (COVID-19) mRNA BNT-162b2 vac 07/01/20 Recorded SARS-CoV-2 (COVID-19) mRNA BNT-162b2 vac 06/10/20 Recorded tetanus/diphtheria/pertussis, acel(Tdap) 3 04/05/18 Given pneumococcal 13-valent vaccine 4 03/09/17 Given pneumococcal 23-valent vaccine 03/07/17 Recorded Tetanus-Diphth Toxoids, Adult (oldterm) 09/25/96 [facility] 1Result Comment: [02/28/2018] Administered at [facility] 2Admin Note: [facility] per pt 3Result Comment: [facility] [id number] 4Admin Note: [facility] per pt Medications famotidine 20 mg oral tablet 20 mg, 1, tablet, By Mouth, 2 times a day, # 60 tablet, Refills 5, Tot. Refills 5, Maintenance, 03/30/24 7:37:00 PM EST, Route to Pharmacy Electronically, [facility] #[id number], Partial fill upon patient request if the prescription is for a schedule II opioid drug., 156.2, cm, 03/28/24 16:02:00 EST, Height Start Date: 03/30/24 Stop Date: 09/26/24 Status: Ordered Quantity: 60.0 Unit: tablet Repeat number: 6 LORazepam 0.5 mg oral tablet 1 tablet = 0.5 mg, By Mouth, 2 times a day, PRN Anxiety, # 180 tablet, 1 Refills, Maintenance, 03/30/24 7:50:00 PM EST, Tablet, [facility] #[id number], 156.2, cm, 03/28/24 16:02:00 EST, Height Start Date: 03/30/24 Stop Date: 09/26/24 Status: Ordered Quantity: 180.0 Unit: tablet Repeat number: 2 Multivitamin 0 Refills, Maintenance, 06/06/23 9:59:00 AM EST, Partial fill upon patient request if the prescription is for a schedule II opioid drug. Start Date: 06/06/23 Status: Ordered Repeat number: 1 valacyclovir 1 gm oral tablet 1 tablet, By Mouth, Daily, # 90 tablet, 3 Refills, Maintenance, 03/30/24 7:49:00 PM EST, [facility][id number], 156.2, cm, 03/28/24 16:02:00 EST, Height Start Date: 03/30/24 Stop Date: 03/25/25 Status: Ordered Quantity: 90.0 Unit: tablet Repeat number: 4 zolpidem 5 mg oral tablet 1 tablet = 5 mg, By Mouth, Daily at bedtime, for 30 days, # 30 tablet, 5 Refills, Acute 09/26/24 7:34:00 PM EDT, 03/30/24 7:34:00 PM EST, [facility] #[id number], Partial fill upon patient request if the prescription is for a schedule II opioid drug., 156.2, cm, 03/28/24 16:02:00 EST, Height Start Date: 03/30/24 Stop Date: 09/26/24 Status: Ordered Quantity: 30.0 Unit: tablet Repeat number: 6 Problem List Condition Confirmation Course Effective Dates Status Health St at Informant Anxiety Confirmed Active Carotid artery stenosis Confirmed Active Elevated Blood Pressure Reading without Diagnosis of Hypertension Confirmed 03/13/10 Active GERD (gastroesophageal reflux disease) Confirmed Active Herpes Simplex Confirmed 03/13/10 Active History of basal cell cancer Confirmed Active Insomnia Confirmed Active Renal calculi Confirmed Active Mitral valve disorder Confirmed Active Diagnosis Diagnosis Type Effective Dates Health Status Clinical Service Informant Mitral valve disorder Discharge Diagnosis 08/18/24 GERD (gastroesophageal reflux disease) Discharge Diagnosis 08/18/24 Carotid artery stenosis Discharge Diagnosis 08/18/24 Anxiety Discharge Diagnosis 08/18/24 Insomnia Discharge Diagnosis 08/18/24 Herpes Simplex Discharge Diagnosis 08/18/24 History of basal cell cancer Discharge Diagnosis 08/18/24 Elevated Blood Pressure Reading without Diagnosis of Hypertension Discharge Diagnosis 08/18/24 Vital Signs Most recent to oldest [Reference Range]: 1 2 3 Height 156.2 cm (08/18/24 3:13 PM) 156.2 cm (08/18/24 2:41 PM) 156.2 cm (08/18/24 2:34 PM) Oxygen Saturation [94-100 %] 97 % (08/18/24 2:34 PM) Pulse Rate [55-90 bpm] 75 bpm (08/18/24 2:34 PM) Blood Pressure [90-138/55-84 mm Hg] 132/84mm Hg (08/18/24 3:13 PM) 149/76mm Hg *H* (08/18/24 2:41 PM) 147/73mm Hg *H* (08/18/24 2:34 PM) Mode of Delivery (Oxygen) Room air (08/18/24 2:34 PM) Blood pressure sites Arm, right (08/18/24 2:41 PM) Arm, right (08/18/24 2:34 PM) Social History Social History Type Response Smoking Status Never smoker entered on: 03/16/17 Sex Sex Representation Female (finding) Note * Jolie Irving: PERFORM Event Display: Patient Education/Instruction Authored Date: [id number] Ambulatory Adult Visit Summary [facility] [address] [place] [address] Name: AXEL PERES : 1950?? Visit: 08/18/2024 14:25?? Ambulatory Visit Instructions ?? Your Care Team Primary Care Provider Arcelia Oconnor MD? This Visit Provider Arcelia Oconnor MD Your Diagnosis Mitral valve disorder GERD (gastroesophageal reflux disease) Carotid artery stenosis Anxiety Insomnia Herpes Simplex History of basal cell cancer Elevated Blood Pressure Reading without Diagnosis of Hypertension Vitals Signs Pulse Rate: 75 bpm Height: 156.2 cm Systolic Blood Pressure: 132 mm Hg ?? Diastolic Blood Pressure: 84 mm Hg ?? Oxygen Saturation: 97 % ?? What to do next Follow-Up Appointments Follow Up with??Arcelia Oconnor MD When:??04/07/2025 03:10 PM EST Why: mwv Where: [address] [place] [address]- Medications The list below reflects the information in our records and provided by you today along with any changes made during this visit. Please continue your medications until treatment is completed or stopped by your provider. If this is different from the information you have or there are other questions,please contact the prescribing provider. What How Much When Instructions Unchanged Famotidine (famotidine 20 mg oral tablet) 1 tab(s) Oral Twice a day Duration: 30 Days Unchanged Lorazepam (LORazepam 0.5 mg oral tablet) 1 tab(s) Oral Twice a day as needed for Anxiety Duration: 90 Days Unchanged Multivitamin Unchanged ValACYclovir (valacyclovir 1 gm oral tablet) 1 tab(s) Oral Daily Duration: 90 Days Unchanged Zolpidem (zolpidem 5 mg oral tablet) 1 tab(s) Oral Daily at Bedtime Duration: 30 Days ?? What How Much When Comments Stop Taking Omeprazole (omeprazole 20 mg oral enteric coated capsule) 1 capsule Oral Twice a day Medications and Immunizations Administered Medications Given During Visit No medications given during this visit.?? Allergies (NKA means No Known Allergies) Tylox??(vomiting) Common Emergency Awareness Tips IS IT A STROKE? Act FAST and Check for these signs: FACE Does the face look uneven? ARM Does one arm drift down? SPEECH Does their speech sound strange? TIME Call at any sign of stroke ?? Heart Attack Signs Chest discomfort: Most heart attacks involve discomfort in the center of the chest and lasts more than a few minutes, or goes away and comes back. It can feel like uncomfortable pressure, squeezing, fullness or pain. Discomfort in upper body: Symptoms can include pain or discomfort in one or both arms, back, neck, jaw or stomach. Shortness of breath: With or without discomfort. Other signs: Breaking out in a cold sweat, nausea, or lightheaded. Remember, MINUTES DO MATTER. If you experience any of these heart attack warning signs, call to get immediate medical attention! ?? Smoking can increase your chances of developing chronic health problems and can cause harmful effects to other family members in your house. If you smoke, you are strongly encouraged to quit. Please call [employer] at [phone] or 2-851-372[employer] ([phone]) or log in to [email or web address] for referrals to smoking cessation programs. ?? The National Suicide Prevention Hotline is available 13/11 if you or someone you know needs to find a reason to keep living. By calling 7-551-758-talk (2407) you'll be connected to a skilled, trained counselor at a crisis center in your area. [facility] Portal You can view and manage your care through the patient portal or by using a health care jg of your choosing. [employer] is a website that allows you to securely view your medical information including your hospital discharge summary, office visit summaries, medications and follow-up visits. You can also request appointments, renew medications, and request access to your medical information using a health care jg of your choosing, or just ask a question. You can enroll at [email or web address] or register during your next office visit. [facility], in keeping with [facility] guidance, no longer requires face masks for staff, patientsor visitors in most situations. Similiar to time spent indoors at other locations, there is the chance that you were exposed to repiratory viruses during your time with us (such as flu or COVID-19). If you develop symptoms concerning for a viral respiratory infection, please seek testing (and treatment if indicated) from your medical provider or home test kit. ?? Disclaimer: The information provided is of a general nature and is intended to be used in conjunction with the recommendations and advice of your health care practitioner. Every effort has been made to ensure that the information provided is accurate and complete at the time it is provided to you however, as your needs change, or, as new information becomes available, different or additional instructions may be required. ?? If you have questions, please consult with your primary care provider or pharmacist, as appropriate. This information is not intended to serve as substitution for assessment and evaluation by a qualified health care provider. If you do not have a primary care provider, you may find a [facility] provider by calling [facility] Link at [phone]. Patient Care team information Care Team Personnel Name: Sallie Miranda Position: [facility] Outreach Member Role: Lifetime Consulting Physician Name: Arcelia Oconnor MD Position: [facility] Physician - Primary Care Member Role: PCP Address: [address] [place] [address]- Telecom: Care Team Related Persons Name: ROCCO PERES Insurance Providers Guarantor name: AXEL PERES Health Plan Information #: 1 Payer: ANY ROGERS Member Number: [id number] Policy Number: NA Group Number: [id number] Health Plan Information #: 2 Payer: ANY NELSON MCAAJIT ROGERS Member Number: [id number] Policy Number: NA Group Number: [id number]
--- OUTSIDE RECORDS SUMMARY | 2024-08-27 12:36 | XMS_ITS | Clinical Summary ---
Author Organization [facility] Address [address] [place] [address] Care Team Providers Care Termite Treater Helper Name Role Phone Zenaida Cain NP Primary [...] age to complete this topic Care Teams Termite Treater Helper Relationship Specialty Start Date End Date Zenaida Cain NP [address] [place] [address] PCP - General Gerontology 08/15/17
--- OUTSIDE RECORDS SUMMARY | 2024-08-27 12:36 | XMS_ITS | Clinical Summary ---
Author Organization [facility] Address [address] [place] [address] Phone Care Team Providers Care Grader Patrol Name Role Phone Zenaida Cain NP Primary Care Provider [phone] Allergies Active Allergy Reactions Criticality Noted Date [...] to complete this topic Insurance Care Teams Grader Patrol Relationship Specialty Start Date End Date Zenaida Cain NP [address] PCP - General 05/03/20
== END 2024-08-27 11:38 | disposition home or self-care (01) ==
LOC: HO.HKAS 11:10
PROVIDERS: PCP Internal Medicine; Visit Provider Internal Medicine Hypertension Specialist
DX: N20.0 Calculus of kidney (principal); R03.0 Elevated blood-pressure reading, without diagnosis of hypertension
CPT/HCPCS: 99214

== ENCOUNTER → 2024-08-27 11:10 | Outpatient (BNVA) | payer MEDICARE, SELFPAY | PROVIDERS: PCP Internal Medicine; Visit Provider Internal Medicine Hypertension Specialist | DX: N20.0 Calculus of kidney (principal); R03.0 Elevated blood-pressure reading, without diagnosis of hypertension | CPT/HCPCS: 99212 ==